=== PATIENT | female | born 1985 | race Hispanic/Latino ===

== ENCOUNTER 2017-03-18 16:01 | Emergency (ER) | payer SELFPAY ==
[2017-03-18] MEDS ORDERED: ZOFRAN IV ONE ×2 (20:55→23:55)
[2017-03-18] MEDS ORDERED: MORPHINE IV ONE (20:55)
[2017-03-18] MEDS ORDERED: NACL 0.9% 1000 ML 1,000 ML IV ONE (20:55)
[2017-03-18 22:01] LABS: Basophils % (Auto) 0.4 % (0.0-1.8); Eosinophils % (Auto) 1.3 % (0.0-4.3); Hematocrit 47.4 % (30.3-42.9); Mean Corpuscular HGB Conc 34 % (30-34); Mean Corpuscular Hemoglobin 32 pg (28-32); Mean Corpuscular Volume 93 fl (79-97); Platelet Count 255 K/mm3 (140-440); Red Cell Distribution Width 13.1 % (13.2-15.2); White Blood Count 14.4 K/mm3 (4.5-11.0)
[2017-03-18 22:20] LABS: Amylase 56 units/L (27-131); Lipase 24 units/L (13-60)
[2017-03-18 22:22] LABS: Alanine Aminotransferase 14 units/L (7-56); Albumin 5.1 g/dL (3.9-5); Albumin/Globulin Ratio 1.6 %; Alkaline Phosphatase 96 units/L (35-129); Anion Gap 22 mmol/L; Blood Urea Nitrogen 12 mg/dL (7-17); Calcium 9.6 mg/dL (8.4-10.2); Carbon Dioxide 20 mmol/L (22-30); Chloride 100.6 mmol/L (98-107); Creatine Kinase 78 units/L (30-135); Glucose 98 mg/dL (65-100); Potassium 3.9 mmol/L (3.6-5.0); Sodium 139 mmol/L (137-145); Total Protein 8.2 g/dL (6.3-8.2)
[2017-03-18 22:25] LABS: Bilirubin,Direct < 0.2 mg/dL (0-0.2); Bilirubin,Indirect 0.4 mg/dL
[2017-03-18 22:45] LABS: Bilirubin,Urine NEG (Negative); Blood,Urine NEG (Negative); Ketones,Urine 20 mg/dL (Negative); Leukocyte Esterase,Urine NEG (Negative); Mucus,Urine FEW /HPF; Nitrite,Urine NEG (Negative); Protein,Urine <15 mg/dL mg/dL (Negative); Urobilinogen,Urine < 2.0 mg/dL (<2.0)
--- NOTE | 2017-03-18 23:37 | Ultrasound Report ---
FINAL REPORT PROCEDURE: US ABDOMEN COMPLETE TECHNIQUE: Real-time sonography in multiple planes of the abdomen was performed with image documentation. CPT 41247 HISTORY: abd pain COMPARISON: No prior studies are available for comparison. FINDINGS: Liver: Normal size and echotexture with no evidence of cystic or solid mass lesions. Gallbladder: Well distended with the a 1.8 x 1.5 centimeter calculus. There is no evidence of any gallbladder wall thickening or pericholecystic collections.. Intrahepatic bile ducts: Normal caliber . Extrahepatic bile ducts: 2 millimeters in caliber. Pancreas: Normal as visualized with suboptimal depiction of the pancreatic tail. Aorta: Visualized portions appear normal. RIGHT kidney: Normal echotexture. No focal renal mass, calculus, or hydronephrosis. Length: 11 x 4 x 4cm. LEFT kidney: Normal echotexture. No focal renal mass, calculus, or hydronephrosis . Length: 11 x 5 x 5cm. Spleen: Normal size and echotexture. No focal lesions. Intraperitoneal fluid: None . Other: None . IMPRESSION: Cholelithiasis without any sonographic evidence of cholecystitis.
[2017-03-18] MEDS ORDERED: ZOFRAN ONE (23:49)
--- NOTE | 2017-03-18 23:49 | Cat Scan Report ---
FINAL REPORT PROCEDURE: CT ABDOMEN PELVIS W CON TECHNIQUE: Computerized axial tomography of the abdomen and pelvis was performed after the IV injection of iodinated nonionic contrast. HISTORY: abd pain COMPARISON: No prior studies are available for comparison. FINDINGS: A few small peripheral hazy densities are identified in the right lung lower lobe. Liver, spleen, and adrenal glands are within normal limits. Bilateral kidneys demonstrate uniform enhancement without hydronephrosis. Aorta is of normal caliber. There is no free fluid or free air. 1.5 centimeter calculus is noted in the gallbladder. Small bowel loops are within normal limits. Appendix is normal. Colonic diverticula are noted without evidence of diverticulitis. IMPRESSION: Cholelithiasis without CT evidence of cholecystitis. Ultrasound evaluation may be recommended. Otherwise no acute intra-abdominal or pelvic pathology. Small areas of hazy density in the right lung lower lobe may represent early areas of pneumonitis.
[2017-03-18] MEDS ORDERED: LIDOCAINE VISCOUS 2% PO ONE (23:50)
[2017-03-18] MEDS ORDERED: LIDOCAINE VISCOUS 2% ONE (23:51)
--- NOTE | 2017-03-19 01:34 | XRay Report ---
FINAL REPORT EXAM: XR CHEST ROUTINE 2V HISTORY: cough COMPARISON: None available. FINDINGS:: Frontal and lateral views of the chest obtained. Cardiac silhouette is within normal limits. No focal consolidation or effusion. No pneumothorax. Visualized bony thorax is grossly intact. IMPRESSION:: No acute findings.
--- NOTE | 2017-03-19 01:37 | Emergency Department Report ---
Entered by JUAN GUIDRY, acting as scribe for PAETL HAHN NP. ED Abdominal Pain HPI - General Chief Complaint: Sore Throat Stated Complaint: NAUSEA/FEVER/SORE THROAT Time Seen by Provider: 03/18/17 19:51 Source: patient Mode of arrival: Ambulatory Limitations: No Limitations - History of Present Illness Initial Comments: This is a 31 y/o female, nontoxic, well nourished in appearance, no acute signs of distress with a PMHx of asthma c/o nausea, vomiting and sore throat that began 3 days ago. Rates pain a 7/10 in severity, which she describes as aching in quality. Aggravated with swallowing and alleviated with nothing. Associated symptoms includes nausea and vomiting x 3 days, fever, and chills, but she denies ear pain, headache, dizziness, rhinorrhea, congestion, cough, chest pain , and SOB. Took Motrin and Tylenol with no relief. Patient's secondary complaint consists of a lump in right breast that began 10 months ago. Rates pain a 5/10 in severity, which she describes as aching in quality. Aggravated with palpation and alleviated with nothing. Patient states she was ordered to be seen in outpatient in this ED in April 2016 to have a mammagram of her breasts while she was incarcerated. Denies any changes. Patient requests the results of her mammogram test. PSHx of a benign left lumpectomy. Reports that she was recently seen by a physician in [place] ED and diagnosed with gallstones. Patient states she was told she needed surgery, but she has not followed up with surgery because pain has subsided. Denies any abdominal pain currently. Allergic to penicillin. Patient's is currently at the bedside. MD Complaint: abdominal pain -: Gradual, month(s) Location: diffuse, RUQ Radiation: none Migration to: no migration Severity: moderate Severity scale (0 -10): 8 Quality: aching Consistency: constant Improves With: nothing Worsens With: nothing Associated Symptoms: nausea, vomiting, chills. denies: diarrhea, fever, constipation, dysuria, hematemesis, hematochezia, melena, hematuria, anorexia, syncope - Related Data LMP Date: 01/22/17 Previous Rx's Medication Instructions Recorded Last Taken Type Azithromycin [Zithromax Z-JANAK] 250 mg PO DAILY #6 tablet 03/19/17 Unknown Rx traMADol [Ultram 50 MG tab] 50 mg PO Q6HR PRN #15 tablet 03/19/17 Unknown Rx Allergies Allergy/AdvReac Type Severity Reaction Status Date / Time Penicillins Allergy Unknown Verified 03/18/17 16:10 shellfish derived Allergy Swelling Verified 03/18/17 16:10 ED Review of Systems Constitutional: denies: chills, fever Eyes: denies: eye pain, eye discharge, vision change ENT: throat pain. denies: ear pain Respiratory: denies: cough, shortness of breath, wheezing Cardiovascular: denies: chest pain, palpitations Endocrine: no symptoms reported Gastrointestinal: abdominal pain, nausea, vomiting. denies: diarrhea, constipation, hematemesis, melena, hematochezia Genitourinary: denies: urgency, dysuria, discharge Musculoskeletal: denies: back pain, joint swelling, arthralgia Skin: denies: rash, lesions Neurological: denies: headache, weakness, paresthesias Psychiatric: denies: anxiety, depression Hematological/Lymphatic: denies: easy bleeding, easy bruising ED Past Medical Hx - Past Medical History Previous Medical History?: Yes Hx Asthma: Yes - Surgical History Additional Surgical History: left lumpectomy - benign - Social History Smoking Status: Current Every Day Smoker Substance Use Type: Alcohol - Medications Home Medications: Home Medications Medication Instructions Recorded Confirmed Last Taken Type Azithromycin [Zithromax Z-JANAK] 250 mg PO DAILY #6 tablet 03/19/17 Unknown Rx traMADol [Ultram 50 MG tab] 50 mg PO Q6HR PRN #15 tablet 03/19/17 Unknown Rx ED Physical Exam - General Limitations: No Limitations General appearance: alert, in no apparent distress - Head Head exam: Present: atraumatic, normocephalic - Eye Eye exam: Present: normal appearance, PERRL. Absent: scleral icterus, conjunctival injection, nystagmus, periorbital swelling, periorbital tenderness Pupils: Present: normal accommodation - ENT ENT exam: Present: mucous membranes moist, TM's normal bilaterally, normal external ear exam - Expanded ENT Exam Expanded Ear exam: Present: normal external inspection Mouth exam: Present: normal external inspection, tongue normal. Absent: drooling, trismus, muffled voice, tongue elevation, laceration Teeth exam: Present: normal inspection Throat exam: Positive: tonsillar erythema, tonsillomegaly (2+), tonsillar exudate. Negative: R peritonsillar mass, L peritonsillar mass - Neck Neck exam: Present: normal inspection, full ROM. Absent: tenderness, meningismus, lymphadenopathy, thyromegaly - Respiratory Respiratory exam: Present: normal lung sounds bilaterally. Absent: respiratory distress, wheezes, rales, rhonchi, stridor, chest wall tenderness, accessory muscle use, decreased breath sounds, prolonged expiratory - Cardiovascular Cardiovascular Exam: Present: regular rate, normal rhythm, tachycardia, normal heart sounds. Absent: bradycardia, irregular rhythm, systolic murmur, diastolic murmur, rubs, gallop - GI/Abdominal GI/Abdominal exam: Present: soft, tenderness, normal bowel sounds. Absent: distended, guarding, rebound, rigid, diminished bowel sounds, mass - Expanded GI/Abdominal Exam Expanded GI/Abdominal exam: Absent: psoas sign, obturator sign, heel tap sign, Whitehead's sign, Rovsing's sign, tenderness at Mcburney's Point, ascites - Rectal Rectal exam: Present: deferred - Extremities Exam Extremities exam: Present: normal inspection, full ROM, normal capillary refill. Absent: tenderness, pedal edema, joint swelling, calf tenderness - Back Exam Back exam: Present: normal inspection, full ROM. Absent: tenderness, CVA tenderness (R), CVA tenderness (L), muscle spasm, paraspinal tenderness, vertebral tenderness, rash noted - Neurological Exam Neurological exam: Present: alert, oriented X3, CN II-XII intact, normal gait, reflexes normal - Psychiatric Psychiatric exam: Present: normal affect, normal mood - Skin Skin exam: Present: warm, dry, intact, normal color. Absent: rash ED Course Vital Signs 03/18/17 16:10 Temperature 99 F Pulse Rate 115 H Respiratory 18 Rate Blood Pressure 129/97 O2 Sat by Pulse 99 Oximetry - Reevaluation(s) Reevaluation #1: 03/18/17 21:10 Patient is speaking in full sentences but no signs of distress and accompanied by . Reevaluation #2: 03/19/17 01:43 Patient is resting comfortably with no signs of distress. Reevaluation #3: 03/19/17 01:43 By mouth challenge; patient's daughter well with no signs of distress or nausea/ vomiting noted. Reevaluation #4: 03/19/17 01:51 Patient's is currently at bedside and states he will drive the patient home after discharge. ED Medical Decision Making - Lab Data Result diagrams: 03/18/17 21:37 03/18/17 21:37 - Medical Decision Making 31-year-old female that presents with tonsillitis exudate, nausea or vomiting. Patient was examined myself. Patient is stable. Patient received a CT scan of abdomen/pelvis, ultrasound of abdomen complete, and chest x-ray area ultrasound indicates cholelithiasis with no signs of cholecystitis. CT scan of abdomen is negative for any abnormalities but does indicate possible pneumonitis. Chest x- ray results negative findings of any abnormalities. Dr. Brown was consulted about patient exam, history, labs, and imaging findings and agrees to d/c plan of care. CBC obtained with elevated 14 of white count which is related to her tonsillitis with exudate. Patient was instructed and referred to follow up with a primary care doctor/general surgery for follow-up in 24 hours or if symptoms worsen and continue return to emergency room as soon as possible. Patient received azithromycin at the time of discharge. At time time of discharge, the patient does not seem toxic or ill in appearance. No acute signs of distress noted. Patient agrees to discharge treatment plan of care. No further questions noted by the patient. Patient was notified that she may need surgery for her gallbladder. ED Disposition Clinical Impression: Tonsillitis with exudate Cholelithiasis Qualifiers: Cholelithiasis location: other site Biliary obstruction: without biliary obstruction Qualified Code(s): K80.80 - Other cholelithiasis without obstruction Disposition: DC-01 TO HOME OR SELFCARE Is pt being admited?: No Does the pt Need Aspirin: No Condition: Stable Instructions: Azithromycin (By mouth), Tramadol (By mouth), Biliary Colic (ED) , Tonsillitis (ED) Additional Instructions: follow up with a primary care doctor/general surgery for possible gallbladder surgery in 24 hours or if symptoms worsen and continue return to emergency room as soon as possible. Do not operate any machinery after discharge due to the sedation/drowsiness of morphine Do not Operate any machinery while taking Ultram due to drowsiness. Prescriptions: Azithromycin [Zithromax Z-JANAK] 250 mg PO DAILY #6 tablet traMADol [Ultram 50 MG tab] 50 mg PO Q6HR PRN #15 tablet PRN Reason: Pain Referrals: [facility] [Outside] - 3-5 Days [facility] [Outside] - 3-5 Days PRIMARY CARE, [Primary Care Provider] - 24 Hours DAWNA BUSH MD [Staff Physician] - 24 Hours DELBERT VAZQUEZ MD [Staff Physician] - 24 Hours Forms: Work/School Release Form(ED) This documentation as recorded by the BREA sanchez JASMINE,accurately reflects the service I personally performed and the decisions made by ,PATEL HAHN, HERB GROWER.
[2017-03-19 02:31] VITALS: BP 156/73
== END 2017-03-19 03:00 | disposition home or self-care (01) ==
LOC: ED 16:01
DX: J03.90 Acute tonsillitis, unspecified (principal); K80.20 Calculus of gallbladder without cholecystitis without obstruction; J45.909 Unspecified asthma, uncomplicated; F17.210 Nicotine dependence, cigarettes, uncomplicated; Z88.0 Allergy status to penicillin; Z91.013 Allergy to seafood
CPT/HCPCS: 36415; 71020; 74177; 76700; 80048; 80074; 81001; 81025; 82140; 82150; 82550; 83690; 84702; 85025; 87040; 96361; 96374; 96375; 96376; 99284; J2270; J2405; J7030; Q9967

== ENCOUNTER 2020-12-24 18:47 | Inpatient (IN) | payer OTHER ==
[2020-12-24] MEDS ORDERED: diphenhydrAMINE 25 MG CAP PO PRN (19:24)
[2020-12-24] MEDS ORDERED: MAGNESIUM HYDROXIDE (MOM) ORAL LIQD UDC PO PRN (19:24)
[2020-12-24] MEDS ORDERED: ACETAMINOPHEN 325 MG TAB PO PRN (19:24)
[2020-12-24] MEDS ORDERED: ALUM-MAG HYDROXIDE-SIMETHICONE 200-200-20MG/5ML ORAL LIQD 30 ML PO PRN (19:24)
[2020-12-24] MEDS ORDERED: DOCUSATE SODIUM 100 MG CAP PO PRN (19:24)
[2020-12-24] MEDS ORDERED: ACETAMINOPHEN 500 MG TAB PO PRN (19:57)
[2020-12-24 20:23] LABS: Hematocrit 39.8 % (30.3-42.9); Mean Corpuscular HGB Conc 35 % (30-34); Mean Corpuscular Volume 94 fl (79-97); Platelet Count 170 K/mm3 (140-440); Red Blood Count 4.22 M/mm3 (3.65-5.03); Red Cell Distribution Width 12.5 % (13.2-15.2)
--- NOTE | 2020-12-24 20:39 | History and Physical Report ---
History of Present Illness Date of examination: 12/24/20 (Observation for elevated BP's and 24 hr urine) Date of admission: 12/24/20 19:19 Chief complaint: They sent me to the hospital because my blood pressure was high at the high risk doctor. History of present illness: [facility] were she had elevated blood pressures. It was recommended that she complete a 24 hr urine but was called to come to the hospital for observation d/t potential for patient to be non complaint with completing 24 hr urine. EDC Confirmation: 01/16/2021 Gestational Age: 36.5 weeks on admission Past History : 4 Term Births: 3 Premature Births: 0 Living Children: 3 Para: 3 Mult. Births: 0 Prev : 0 Aborta: 0 Elect. Ab: 0 Spont. Ab: 0 Ectopics: 0 # 1 Delivery date: 12/13/2002 Weeks Gestation: 41 labor: no Delivery type: Hours of labor: 12 Anesthesia type: epidural Delivery location: [place] Sex: Female weight: 6-? Name: Niki Comments: Induction for post-dates # 2 Delivery date: 01/25/2004 Weeks Gestation: 39 labor: no Delivery type: Hours of labor: 6 Anesthesia type: none Delivery location: [facility] Infant Sex: Male weight: 7-3 Name: Finn # 3 Delivery date: 12/15/2008 Weeks Gestation: 40 labor: no Delivery type: Hours of labor: 6 Anesthesia type: IV Delivery location: [place] Sex: Male weight: 7-0 Name: Ashok Past Medical History: Asthma Past Surgical History: Cyst removal Breast Surgery: (2003) left Family History Summary: Other Family Member - Has Family History of Ovarian Cancer - Entered On: 08/07/2020 Other Family Member - Has Family History of Hypertension - Entered On: 08/07/2020 Other Family Member - Has Family History of Diabetes - Entered On: 08/07/2020 Other Family Member - Has Family History of CVA or Stroke - Entered On: 08/07/2020 Other Family Member - Has Family History of Coronary Heart Disease - Entered On: 08/07/2020 Other Family Member - Has Family History Colon Cancer - Entered On: 08/07/2020 Other Family Member - Has Family History Breast Cancer - Entered On: 08/07/2020 Social History: Marital Status: Children: 3 Occupation: Sanitation Laborer at [employer] Smoking History: Patient has never smoked. 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 Infection History Hx of STD: gonorrhea HIV Risk Eval: no Personal hx. of genital herpes: no Genetic History Congenital Heart Defect: Mom: yes Dad: no Comments: 1st cousin Sabina Disease: Mom: no Dad: no Thalassemia Mom: no Dad: no Neural Tube Defect Mom: no Dad: no Down's Syndrome Mom: yes Dad: no Comments: cousins Keyur-Sachs Mom: no Dad: no Sickle Cell Disease/Trait Mom: no Dad: no Hemophilia Mom: no Dad: no Muscular Dystrophy Mom: no Dad: no Cystic Fibrosis Mom: no Dad: no Alice Chorea Mom: no Dad: no Mental Retardation Mom: no Dad: no Fragile X Mom: no Dad: no Other Genetic/Chromosomal Disorder Mom: no Dad: no Child w/other defect Mom: no Dad: no Enviromental Exposures Xray Exposure: yes Exposure to Cat Liter: no Current Allergies (reviewed today): * PCN (Critical) * AMOXICILLIN (Critical) * SHELLFISH (Critical) Past History Past Medical History: asthma Past Surgical History: breast surgery (Cyst removed) Family/Genetic History: none Social history: no significant social history - Obstetrical History Expected Date of Delivery: 01/16/21 Actual Gestation: 36 Week(s) 6 Day(s) : 4 Para: 3 Hx # Term Pregnancies: 3 Number of Pregnancies: 0 Spontaneous Abortions: 0 Induced : 0 Number of Living Children: 3 Medications and Allergies Allergies Allergy/AdvReac Type Severity Reaction Status Date / Time Penicillins Allergy Unknown Verified 03/18/17 16:10 shellfish derived Allergy Swelling Verified 03/18/17 16:10 Home Medications Medication Instructions Recorded Confirmed Last Taken Type Azithromycin [Zithromax Z-JANAK] 250 mg PO DAILY #6 tablet 03/19/17 Unknown Rx traMADoL [Ultram 50 MG tab] 50 mg PO Q6HR PRN #15 tablet 03/19/17 Unknown Rx Active Meds: Active Medications Acetaminophen (Acetaminophen 500 Mg Tab) 500 mg PO Q6H PRN PRN Reason: Pain,Mild(1-3)/FEVER>100.5/ORTIZ Al Hydrox/Mg Hydrox/Simethicone (Alum-Mag Hydroxide-Simethicone [phone]/5ml Oral Liqd 30 Ml) 30 ml PO Q6H PRN PRN Reason: Indigestion Diphenhydramine HCl (Diphenhydramine 25 Mg Cap) 25 mg PO Q6H PRN PRN Reason: Itching Docusate Sodium (Docusate Sodium 100 Mg Cap) 100 mg PO Q12H PRN PRN Reason: Constipation Magnesium Hydroxide (Magnesium Hydroxide (Mom) Oral Liqd Udc) 30 ml PO QHS PRN PRN Reason: Laxative Effect Multivitamins/Iron/Calcium ( Cuv11-Cg Fumarate-Folic Acid Vit Tab) 1 each PO QDAY ONEAL Ondansetron HCl (Ondansetron 4 Mg/2 Ml Inj) 4 mg IV Q6H PRN PRN Reason: Nausea And Vomiting Review of Systems All systems: negative - Vital Signs Vital signs: Vital Signs Pulse Pulse Ox 92 H 96 12/24/20 19:39 12/24/20 19:39 Temp Pulse Resp BP Pulse Ox 99.9 F H 89 18 147/92 96 12/24/20 19:43 12/24/20 20:35 12/24/20 19:43 12/24/20 19:43 12/24/20 20:35 Pt denies vaginal bleeding, LOF, and she is not feeling any ctxs. Ctxs noted on monitor. Also denies ORTIZ, blurred vision, spots before her eyes, chest pain, shortness of breath, and upper abdominal pain. Will redraw BMP d/t sample being hemolyzed. - Physical Exam Breasts: Positive: deferred Cardiovascular: Normal S1, Normal S2 Lungs: Positive: Clear to auscultation Abdomen: Positive: normal appearance, soft Uterus: Positive: normal size (For 36 weeks gestation. ), normal contour Extremities: Positive: normal Deep Tendon Reflex Grade: Normal +2 - Obstetrical FHR: category 1 Uterine Contraction Monitor Mode: External Uterine Contraction Pattern: Irregular Uterine Tone Measurement Phase: Resting Uterine Contraction Intensity: Mild Results Result Diagrams: 12/24/20 20:00 12/25/20 00:14 Abnormal lab results 12/24/20 Range/Units 20:00 WBC 12.2 H (4.5-11.0) K/mm3 MCH 33 H (28-32) pg MCHC 35 H (30-34) % RDW 12.5 L (13.2-15.2) % GBS UNKNOWN All other labs normal. HBsAg Screen Negative Negative *1 RPR Non Reactive Non Reactive *2 Rubella Antibodies, IgG 6.22 index Immune >0.99 *3 Non-immune <0.90 Equivocal 0.90 - 0.99 Immune >0.99 ABO Grouping O *4 Rh Factor Negative *5 Tests: (3) HB Solu + Rflx Frac (529300) Hemoglobin (Hgb) Solubility Negative Negative *55 Tests: (4) HIV Ag/Ab with Reflex ([id number]) HIV Screen 4th Generation wRfx Non Reactive Non Reactive *56 Tests: (5) HCV Antibody reflex to ATILIO ([id number]) ! HCV Ab <0.1 s/co ratio 0.0-0.9 *57 Tests: (6) Interpretation: ([id number]) ! Interpretation: SPRCS *58 Negative Assessment and Plan A: 35 y.o. @ 36.5 wks. Observation to collect a 24 hr urine d/t elevated blood pressures @ [facility] appointment. - Patient Problems (1) Elevated blood pressure complicating in third trimester, antepartum Onset Date: ~12/24/20 Current Visit: Yes Status: Acute Plan to address problem: Admit to labor and to labor and delivery. Initiate IV: INT. Draw pre eclampsia labs. Monitor blood pressures. Monitor for s/sx of pre eclampsia. (2) with 36 completed weeks gestation Current Visit: Yes Status: Acute Plan to address problem: Monitor status through EFM.
[2020-12-24 21:04] LABS: Alanine Aminotransferase 18 units/L (7-56); Albumin 3.9 g/dL (3.9-5); Blood Urea Nitrogen 10 mg/dL (7-17); Hemolysis Index 450; Uric Acid 6.1 mg/dL (3.5-7.6)
[2020-12-24 21:07] LABS: BUN/Creatinine Ratio 20; Bilirubin,Direct < 0.2 mg/dL (0-0.2)
[2020-12-25 00:47] LABS: Blood Urea Nitrogen 10 mg/dL (7-17); Calcium 8.6 mg/dL (8.4-10.2); Hemolysis Index 9
[2020-12-25 01:00] LABS: BUN/Creatinine Ratio 25
[2020-12-25] MEDS: ONDANSETRON 4 MG/2 ML INJ IV PRN ×3 (01:20→20:51)
[2020-12-25] MEDS ORDERED: POTASSIUM CHLORIDE ER 20 MEQ TAB PO ONE (02:08)
[2020-12-25 02:31] LABS: Uric Acid 5.6 mg/dL (3.5-7.6)
[2020-12-25 04:43] LABS: Bacteria,Urine 2+ /HPF (Negative); Bilirubin,Urine NEG (Negative); Blood,Urine NEG (Negative); Calcium Oxalate Crystals,Urine 2+; Color,Urine Yellow (Yellow); Mucus,Urine 2+ /HPF
[2020-12-25 06:08] LABS: Amphetamine Screen,Urine Negative; Benzodiazepines Screen,Urine Negative; Cocaine Screen,Urine Negative; Methadone Screen,Urine Negative; Opiate Screen,Urine Negative
[2020-12-25 06:34] LABS: Cannabinoid Screen,Urine Positive
--- NOTE | 2020-12-25 07:49 | Progress Note ---
Assessment and Plan Patient resting w/o complaints. denies ORTIZ, visual changes or epigastric pain. plan of care reviewed, all questions addressed. - Patient Problems (1) Elevated blood pressure complicating in third trimester, antepartum Onset Date: ~12/24/20 Current Visit: Yes Status: Acute Plan to address problem: 24hr urine in progress, done ~ 1900 tonight Continue to monitor b/ps (2) Hypokalemia Current Visit: Yes Status: Acute Plan to address problem: potassium replacement, recheck K+ later today (3) IUGR (intrauterine growth restriction) Current Visit: Yes Status: Acute Plan to address problem: cont efm/toco (4) Insufficient care in third trimester Current Visit: Yes Status: Acute (5) complicated by umbilical vein abnormality Current Visit: Yes Status: Acute Qualifiers: Fetus number: single or unspecified fetus Qualified Code(s): O35.8XX0 - Maternal care for other (suspected) abnormality and damage, not applicable or unspecified (6) with 36 completed weeks gestation Current Visit: Yes Status: Acute Subjective - Subjective Date of service: 12/25/20 Principal diagnosis: IUP @ 36+6; elevated b/p, 24hr urine for TP in progress Patient reports: movement normal, no new complaints, no loss of fluid, no vaginal bleeding, no contractions Objective - Vital Signs Vital Signs: Vital Signs - 12hr 12/24/20 12/24/20 12/24/20 19:49 19:52 19:54 Temperature Pulse Rate 93 H 88 79 Blood Pressure O2 Sat by Pulse 96 94 95 Oximetry 12/24/20 12/24/20 12/24/20 19:59 20:01 20:04 Temperature Pulse Rate 82 89 80 Blood Pressure O2 Sat by Pulse 96 94 97 Oximetry 12/24/20 12/24/20 12/24/20 20:09 20:15 20:20 Temperature Pulse Rate 101 H 114 H 75 Blood Pressure O2 Sat by Pulse 95 96 95 Oximetry 12/24/20 12/24/20 12/24/20 20:25 20:30 20:35 Temperature Pulse Rate 92 H 82 89 Blood Pressure O2 Sat by Pulse 96 96 96 Oximetry 12/24/20 12/24/20 12/24/20 20:38 20:40 20:45 Temperature Pulse Rate 78 78 87 Blood Pressure 122/64 O2 Sat by Pulse 95 96 Oximetry 12/24/20 12/24/20 12/24/20 20:50 20:55 21:00 Temperature Pulse Rate 70 73 68 Blood Pressure O2 Sat by Pulse 97 96 96 Oximetry 12/24/20 12/24/20 12/24/20 21:05 21:08 21:10 Temperature Pulse Rate 78 76 80 Blood Pressure 120/72 O2 Sat by Pulse 96 96 Oximetry 12/24/20 12/24/20 12/24/20 21:15 21:20 21:29 Temperature Pulse Rate 79 78 74 Blood Pressure O2 Sat by Pulse 96 97 98 Oximetry 12/24/20 12/24/20 12/24/20 21:34 21:38 21:39 Temperature Pulse Rate 81 82 81 Blood Pressure 120/73 O2 Sat by Pulse 97 97 Oximetry 12/24/20 12/24/20 12/24/20 21:44 21:49 21:54 Temperature Pulse Rate 82 76 84 Blood Pressure O2 Sat by Pulse 96 96 95 Oximetry 12/24/20 12/24/20 12/24/20 21:58 21:59 22:03 Temperature Pulse Rate 84 89 80 Blood Pressure O2 Sat by Pulse 94 95 94 Oximetry 12/24/20 12/24/20 12/24/20 22:04 22:08 22:09 Temperature Pulse Rate 84 70 72 Blood Pressure 115/61 O2 Sat by Pulse 96 96 Oximetry 12/24/20 12/24/20 12/24/20 22:13 22:14 22:19 Temperature Pulse Rate 85 85 90 Blood Pressure O2 Sat by Pulse 94 95 94 Oximetry 12/24/20 12/24/20 12/24/20 22:22 22:24 22:27 Temperature Pulse Rate 69 85 81 Blood Pressure O2 Sat by Pulse 94 94 94 Oximetry 12/24/20 12/24/20 12/24/20 22:29 22:34 22:39 Temperature Pulse Rate 86 69 75 Blood Pressure 119/65 O2 Sat by Pulse 94 94 94 Oximetry 12/24/20 12/24/20 12/24/20 22:42 22:44 22:49 Temperature Pulse Rate 79 77 76 Blood Pressure O2 Sat by Pulse 94 94 94 Oximetry 12/24/20 12/24/20 12/24/20 22:54 22:55 22:59 Temperature Pulse Rate 66 72 86 Blood Pressure O2 Sat by Pulse 94 94 94 Oximetry 12/24/20 12/24/20 12/24/20 23:04 23:06 23:08 Temperature Pulse Rate 88 66 64 Blood Pressure 123/62 O2 Sat by Pulse 95 94 Oximetry 12/24/20 12/24/20 12/24/20 23:09 23:14 23:16 Temperature Pulse Rate 83 79 77 Blood Pressure O2 Sat by Pulse 95 94 94 Oximetry 12/24/20 12/24/20 12/24/20 23:19 23:24 23:29 Temperature Pulse Rate 79 73 65 Blood Pressure O2 Sat by Pulse 94 93 95 Oximetry 12/24/20 12/24/20 12/24/20 23:34 23:39 23:44 Temperature Pulse Rate 74 67 66 Blood Pressure 120/59 O2 Sat by Pulse 96 95 95 Oximetry 12/24/20 12/24/20 12/24/20 23:49 23:54 23:59 Temperature Pulse Rate 79 71 69 Blood Pressure O2 Sat by Pulse 95 95 95 Oximetry 12/25/20 12/25/20 12/25/20 00:00 00:04 00:09 Temperature Pulse Rate 67 68 72 Blood Pressure 116/64 O2 Sat by Pulse 94 95 95 Oximetry 12/25/20 12/25/20 12/25/20 00:14 00:22 00:27 Temperature Pulse Rate 70 87 77 Blood Pressure O2 Sat by Pulse 96 98 98 Oximetry 12/25/20 12/25/20 12/25/20 00:32 00:37 00:38 Temperature Pulse Rate 81 79 75 Blood Pressure 121/68 O2 Sat by Pulse 96 97 Oximetry 12/25/20 12/25/20 12/25/20 00:42 00:47 00:52 Temperature Pulse Rate 68 67 69 Blood Pressure O2 Sat by Pulse 97 98 96 Oximetry 12/25/20 12/25/20 12/25/20 00:57 01:02 01:07 Temperature Pulse Rate 65 68 75 Blood Pressure O2 Sat by Pulse 98 97 96 Oximetry 12/25/20 12/25/20 12/25/20 01:08 01:12 01:17 Temperature 98.7 F Pulse Rate 76 73 74 Blood Pressure 120/72 O2 Sat by Pulse 96 97 Oximetry 12/25/20 12/25/20 12/25/20 01:22 01:27 01:32 Temperature Pulse Rate 70 69 72 Blood Pressure O2 Sat by Pulse 98 97 97 Oximetry 12/25/20 12/25/20 12/25/20 01:37 01:38 01:42 Temperature Pulse Rate 66 71 69 Blood Pressure 122/72 O2 Sat by Pulse 97 96 Oximetry 12/25/20 12/25/20 12/25/20 01:47 01:52 01:57 Temperature Pulse Rate 72 70 72 Blood Pressure O2 Sat by Pulse 96 97 96 Oximetry 12/25/20 12/25/20 12/25/20 02:02 02:07 02:09 Temperature Pulse Rate 66 73 69 Blood Pressure 126/70 O2 Sat by Pulse 96 96 Oximetry 12/25/20 12/25/20 12/25/20 02:12 02:17 02:22 Temperature Pulse Rate 74 64 80 Blood Pressure O2 Sat by Pulse 97 98 97 Oximetry 12/25/20 12/25/20 12/25/20 02:27 02:32 02:37 Temperature Pulse Rate 74 70 68 Blood Pressure O2 Sat by Pulse 95 95 95 Oximetry 12/25/20 12/25/20 12/25/20 02:38 02:42 02:47 Temperature Pulse Rate 68 68 70 Blood Pressure 128/66 O2 Sat by Pulse 95 95 Oximetry 12/25/20 12/25/20 12/25/20 02:52 02:57 03:02 Temperature Pulse Rate 65 68 66 Blood Pressure O2 Sat by Pulse 96 95 96 Oximetry 12/25/20 12/25/20 12/25/20 03:07 03:10 03:12 Temperature Pulse Rate 70 62 64 Blood Pressure 128/66 O2 Sat by Pulse 95 95 Oximetry 12/25/20 12/25/20 12/25/20 03:17 03:32 03:37 Temperature Pulse Rate 65 73 78 Blood Pressure O2 Sat by Pulse 96 99 97 Oximetry 12/25/20 12/25/20 12/25/20 03:38 03:42 03:47 Temperature Pulse Rate 75 75 70 Blood Pressure 112/61 O2 Sat by Pulse 95 95 Oximetry 12/25/20 12/25/20 12/25/20 03:52 03:57 04:02 Temperature Pulse Rate 71 71 70 Blood Pressure O2 Sat by Pulse 96 95 95 Oximetry 12/25/20 12/25/20 12/25/20 04:07 04:10 04:12 Temperature Pulse Rate 71 82 66 Blood Pressure 119/78 O2 Sat by Pulse 96 96 Oximetry 12/25/20 12/25/20 12/25/20 04:17 04:22 04:27 Temperature Pulse Rate 79 78 77 Blood Pressure O2 Sat by Pulse 96 96 97 Oximetry 12/25/20 12/25/20 12/25/20 04:32 04:37 04:39 Temperature Pulse Rate 71 77 67 Blood Pressure 125/75 O2 Sat by Pulse 96 97 Oximetry 12/25/20 12/25/20 12/25/20 04:42 04:47 04:52 Temperature Pulse Rate 79 77 74 Blood Pressure O2 Sat by Pulse 97 97 96 Oximetry 12/25/20 12/25/20 12/25/20 04:57 05:02 05:05 Temperature Pulse Rate 72 73 74 Blood Pressure O2 Sat by Pulse 94 95 94 Oximetry 12/25/20 12/25/20 12/25/20 05:07 05:08 05:12 Temperature Pulse Rate 76 73 73 Blood Pressure 113/71 O2 Sat by Pulse 94 94 Oximetry 12/25/20 12/25/20 12/25/20 05:17 05:22 05:27 Temperature Pulse Rate 75 75 75 Blood Pressure O2 Sat by Pulse 93 93 92 Oximetry 12/25/20 12/25/20 12/25/20 05:28 05:31 05:32 Temperature Pulse Rate 69 59 L 91 H Blood Pressure 120/76 O2 Sat by Pulse 94 97 Oximetry 12/25/20 12/25/20 12/25/20 05:37 05:38 05:42 Temperature Pulse Rate 82 84 78 Blood Pressure 116/75 O2 Sat by Pulse 94 93 Oximetry 12/25/20 12/25/20 12/25/20 05:47 05:52 05:54 Temperature Pulse Rate 78 74 72 Blood Pressure O2 Sat by Pulse 93 93 94 Oximetry 12/25/20 12/25/20 12/25/20 05:57 06:02 06:07 Temperature Pulse Rate 78 73 73 Blood Pressure O2 Sat by Pulse 93 94 93 Oximetry 12/25/20 12/25/20 12/25/20 06:09 06:12 06:16 Temperature Pulse Rate 74 71 75 Blood Pressure 119/67 O2 Sat by Pulse 97 94 Oximetry 12/25/20 12/25/20 12/25/20 06:17 06:22 06:27 Temperature Pulse Rate 76 72 80 Blood Pressure O2 Sat by Pulse 95 94 94 Oximetry 12/25/20 12/25/20 12/25/20 06:29 06:34 06:38 Temperature Pulse Rate 77 65 76 Blood Pressure 132/83 O2 Sat by Pulse 94 98 Oximetry 12/25/20 12/25/20 12/25/20 06:39 06:44 06:49 Temperature Pulse Rate 72 77 76 Blood Pressure O2 Sat by Pulse 98 97 98 Oximetry 12/25/20 12/25/20 12/25/20 06:54 06:59 07:04 Temperature Pulse Rate 81 73 76 Blood Pressure O2 Sat by Pulse 96 96 99 Oximetry 12/25/20 12/25/20 12/25/20 07:08 07:09 07:14 Temperature Pulse Rate 69 70 87 Blood Pressure 125/75 O2 Sat by Pulse 97 96 Oximetry 12/25/20 12/25/20 12/25/20 07:19 07:24 07:29 Temperature Pulse Rate 77 76 70 Blood Pressure O2 Sat by Pulse 97 95 96 Oximetry 12/25/20 12/25/20 12/25/20 07:34 07:38 07:39 Temperature Pulse Rate 69 60 74 Blood Pressure 133/77 137/79 O2 Sat by Pulse 98 99 Oximetry - Exam Cardiovascular: Regular rate Lungs: Clear to auscultation, Normal air movement Abdomen: Present: normal appearance, soft Uterus: Present: normal, fundal height above umbilicus FHR: auscultation normal Uterine Contraction Monitor Mode: External Uterine Contraction Pattern: Absent Uterine Tone Measurement Phase: Resting Extremities: normal Deep Tendon Reflex Grade: Normal +2 - Labs Labs: Abnormal Labs 12/24/20 12/24/20 12/25/20 20:00 20:00 00:14 WBC 12.2 H MCH 33 H MCHC 35 H RDW 12.5 L Sodium 136 L 136 L Potassium 5.9 H 3.3 L D Carbon Dioxide 20 L 21 L Creatinine 0.5 L 0.4 L AST 60 H Urine WBC (Auto) 12/25/20 04:27 WBC MCH MCHC RDW Sodium Potassium Carbon Dioxide Creatinine AST Urine WBC (Auto) 9.0 H Laboratory Results - last 24 hr 12/24/20 12/24/20 12/24/20 20:00 20:00 21:31 WBC 12.2 H RBC 4.22 Hgb 14.0 Hct 39.8 MCV 94 MCH 33 H MCHC 35 H RDW 12.5 L Plt Count 170 Sodium 136 L Potassium 5.9 H Chloride 101.4 Carbon Dioxide 20 L Anion Gap 21 BUN 10 Creatinine 0.5 L Estimated GFR > 60 BUN/Creatinine Ratio 20 Glucose 85 Uric Acid 6.1 Calcium 9.0 Total Bilirubin 0.20 Direct Bilirubin < 0.2 Indirect Bilirubin 0.0 AST 60 H ALT 18 Alkaline Phosphatase 113 Lactate Dehydrogenase Total Protein 6.8 Albumin 3.9 Albumin/Globulin Ratio 1.3 Urine Color Urine Turbidity Urine pH Ur Specific [place] Urine Protein Urine Glucose (UA) Urine Ketones Urine Blood Urine Nitrite Urine Bilirubin Urine Urobilinogen Ur Leukocyte Esterase Urine WBC (Auto) Urine RBC (Auto) U Epithel Cells (Auto) Urine Bacteria (Auto) Calcium Oxalate Crystal Urine Mucus Urine Opiates Screen Urine Methadone Screen Ur Barbiturates Screen Ur Phencyclidine Scrn Ur Amphetamines Screen U Benzodiazepines Scrn Urine Cocaine Screen U Marijuana (THC) Screen Drugs of Abuse Note Blood Type O NEGATIVE Antibody Screen Positive Antibody Identification Anti-D (Passively Aquired) 12/25/20 12/25/20 12/25/20 00:14 00:14 04:27 WBC RBC Hgb Hct MCV MCH MCHC RDW Plt Count Sodium 136 L Potassium 3.3 L D Chloride 101.3 Carbon Dioxide 21 L Anion Gap 17 BUN 10 Creatinine 0.4 L Estimated GFR > 60 BUN/Creatinine Ratio 25 Glucose 98 Uric Acid 5.6 Calcium 8.6 Total Bilirubin Direct Bilirubin Indirect Bilirubin AST 18 ALT 12 Alkaline Phosphatase Lactate Dehydrogenase 159 Total Protein Albumin Albumin/Globulin Ratio Urine Color Yellow Urine Turbidity Slightly-cloudy Urine pH 5.0 Ur Specific [place] 1.028 Urine Protein 30 mg/dl Urine Glucose (UA) Neg Urine Ketones Neg Urine Blood Neg Urine Nitrite Neg Urine Bilirubin Neg Urine Urobilinogen 2.0 Ur Leukocyte Esterase Tr Urine WBC (Auto) 9.0 H Urine RBC (Auto) 4.0 U Epithel Cells (Auto) 8.0 Urine Bacteria (Auto) 2+ Calcium Oxalate Crystal 2+ Urine Mucus 2+ Urine Opiates Screen Urine Methadone Screen Ur Barbiturates Screen Ur Phencyclidine Scrn Ur Amphetamines Screen U Benzodiazepines Scrn Urine Cocaine Screen U Marijuana (THC) Screen Drugs of Abuse Note Blood Type Antibody Screen Antibody Identification 06/08/21 04:27 WBC RBC Hgb Hct MCV MCH MCHC RDW Plt Count Sodium Potassium Chloride Carbon Dioxide Anion Gap BUN Creatinine Estimated GFR BUN/Creatinine Ratio Glucose Uric Acid Calcium Total Bilirubin Direct Bilirubin Indirect Bilirubin AST ALT Alkaline Phosphatase Lactate Dehydrogenase Total Protein Albumin Albumin/Globulin Ratio Urine Color Urine Turbidity Urine pH Ur Specific [place] Urine Protein Urine Glucose (UA) Urine Ketones Urine Blood Urine Nitrite Urine Bilirubin Urine Urobilinogen Ur Leukocyte Esterase Urine WBC (Auto) Urine RBC (Auto) U Epithel Cells (Auto) Urine Bacteria (Auto) Calcium Oxalate Crystal Urine Mucus Urine Opiates Screen Negative Urine Methadone Screen Negative Ur Barbiturates Screen Negative Ur Phencyclidine Scrn Negative Ur Amphetamines Screen Negative U Benzodiazepines Scrn Negative Urine Cocaine Screen Negative U Marijuana (THC) Screen Positive Drugs of Abuse Note Disclamer Blood Type Antibody Screen Antibody Identification
[2020-12-25] MEDS ORDERED: PRENATAL VIT27-FE FUMARATE-FOLIC ACID VIT TAB PO SCH (10:00)
[2020-12-25] MEDS: buprenorphine 2 MG TAB SUBL SL SCH ×2 (10:41→22:23)
[2020-12-25 15:37] LABS: Blood Urea Nitrogen 8 mg/dL (7-17); Calcium 8.7 mg/dL (8.4-10.2); Hemolysis Index 6
[2020-12-25 15:43] LABS: BUN/Creatinine Ratio 20
[2020-12-25 21:52] LABS: Creatinine,Urine 80.3 mg/dL (0.1-20.0)
--- NOTE | 2020-12-26 06:13 | Progress Note ---
Assessment and Plan Called lab for results of 24hr urine They are running it this AM due to the order being cancelled. BP 130-120/80-70 FHR Cat 1 IUP@37w with elevated BP, IUGR, elevated doppler P: continue POC IOL date?? Dr Rogers consulted Subjective - Subjective Date of service: 12/26/20 (pt OOB to toilet) Principal diagnosis: IUP @ 37 0/7; elevated b/p, IUGR; abnl doppler Patient reports: movement normal, no new complaints, no loss of fluid, no vaginal bleeding, no contractions Objective - Vital Signs Vital Signs: Vital Signs - 12hr 12/25/20 12/25/20 12/25/20 18:25 18:30 18:35 Temperature Pulse Rate 64 71 64 Respiratory Rate Blood Pressure Blood Pressure [Left] O2 Sat by Pulse 98 98 97 Oximetry 12/25/20 12/25/20 12/25/20 18:40 18:45 18:48 Temperature Pulse Rate 71 68 67 Respiratory Rate Blood Pressure 132/76 Blood Pressure [Left] O2 Sat by Pulse 98 97 Oximetry 12/25/20 12/25/20 12/25/20 18:50 18:55 19:00 Temperature Pulse Rate 68 69 78 Respiratory Rate Blood Pressure Blood Pressure [Left] O2 Sat by Pulse 96 95 97 Oximetry 12/25/20 12/25/20 12/25/20 19:05 19:10 19:15 Temperature Pulse Rate 65 65 61 Respiratory Rate Blood Pressure Blood Pressure [Left] O2 Sat by Pulse 96 96 97 Oximetry 12/25/20 12/25/20 12/25/20 19:20 19:29 19:34 Temperature Pulse Rate 68 67 67 Respiratory Rate Blood Pressure Blood Pressure [Left] O2 Sat by Pulse 97 98 97 Oximetry 12/25/20 12/25/20 12/25/20 19:39 19:49 19:54 Temperature Pulse Rate 71 59 L 80 Respiratory Rate Blood Pressure Blood Pressure [Left] O2 Sat by Pulse 97 99 98 Oximetry 12/25/20 12/25/20 12/25/20 19:59 20:04 20:07 Temperature Pulse Rate 66 75 58 L Respiratory Rate Blood Pressure 142/82 Blood Pressure [Left] O2 Sat by Pulse 98 97 Oximetry 12/25/20 12/25/20 12/25/20 20:08 20:09 20:14 Temperature 98.7 F Pulse Rate 67 70 63 Respiratory 18 Rate Blood Pressure Blood Pressure 142/82 [Left] O2 Sat by Pulse 97 98 96 Oximetry 12/25/20 12/25/20 12/25/20 20:19 20:24 20:29 Temperature Pulse Rate 84 70 79 Respiratory Rate Blood Pressure Blood Pressure [Left] O2 Sat by Pulse 98 97 97 Oximetry 12/25/20 12/25/20 12/25/20 20:34 20:48 20:53 Temperature Pulse Rate 70 72 65 Respiratory Rate Blood Pressure Blood Pressure [Left] O2 Sat by Pulse 98 98 97 Oximetry 12/25/20 12/25/20 12/25/20 20:58 21:03 21:08 Temperature Pulse Rate 59 L 61 56 L Respiratory Rate Blood Pressure Blood Pressure [Left] O2 Sat by Pulse 97 98 96 Oximetry 12/25/20 12/25/20 12/25/20 21:13 21:18 21:23 Temperature Pulse Rate 60 63 69 Respiratory Rate Blood Pressure Blood Pressure [Left] O2 Sat by Pulse 95 97 98 Oximetry 12/25/20 12/25/20 12/25/20 21:28 21:33 21:38 Temperature Pulse Rate 61 62 66 Respiratory Rate Blood Pressure Blood Pressure [Left] O2 Sat by Pulse 97 97 96 Oximetry 12/25/20 12/25/20 12/25/20 21:43 21:47 21:48 Temperature Pulse Rate 66 64 64 Respiratory Rate Blood Pressure 122/82 Blood Pressure [Left] O2 Sat by Pulse 97 97 Oximetry 12/25/20 12/25/20 12/25/20 21:53 21:58 22:16 Temperature Pulse Rate 64 59 L 77 Respiratory Rate Blood Pressure Blood Pressure [Left] O2 Sat by Pulse 97 97 97 Oximetry 12/25/20 12/25/20 12/25/20 22:21 22:25 22:26 Temperature 98.5 F Pulse Rate 60 66 76 Respiratory 18 Rate Blood Pressure Blood Pressure 122/82 [Left] O2 Sat by Pulse 96 96 96 Oximetry 12/25/20 12/25/20 12/25/20 22:31 22:36 22:41 Temperature Pulse Rate 64 68 67 Respiratory Rate Blood Pressure 129/80 Blood Pressure [Left] O2 Sat by Pulse 97 96 97 Oximetry 06/08/21 06/08/21 06/08/21 22:46 22:47 22:52 Temperature Pulse Rate 71 69 68 Respiratory Rate Blood Pressure 123/79 Blood Pressure [Left] O2 Sat by Pulse 96 98 Oximetry 12/25/20 12/25/20 12/25/20 22:57 23:02 23:07 Temperature Pulse Rate 60 66 63 Respiratory Rate Blood Pressure Blood Pressure [Left] O2 Sat by Pulse 97 96 95 Oximetry 12/25/20 12/25/20 12/25/20 23:12 23:17 23:18 Temperature Pulse Rate 63 62 64 Respiratory Rate Blood Pressure Blood Pressure [Left] O2 Sat by Pulse 94 94 94 Oximetry 12/25/20 12/25/20 12/25/20 23:22 23:27 23:32 Temperature Pulse Rate 63 64 80 Respiratory Rate Blood Pressure Blood Pressure [Left] O2 Sat by Pulse 93 94 92 Oximetry 12/25/20 12/25/20 12/25/20 23:37 23:42 23:45 Temperature Pulse Rate 66 72 61 Respiratory Rate Blood Pressure Blood Pressure [Left] O2 Sat by Pulse 94 93 94 Oximetry 12/25/20 12/25/20 12/25/20 23:47 23:49 23:52 Temperature Pulse Rate 68 62 76 Respiratory Rate Blood Pressure 124/60 Blood Pressure [Left] O2 Sat by Pulse 93 92 Oximetry 12/25/20 12/26/20 12/26/20 23:57 00:02 00:07 Temperature Pulse Rate 70 74 67 Respiratory Rate Blood Pressure Blood Pressure [Left] O2 Sat by Pulse 91 92 93 Oximetry 12/26/20 12/26/20 12/26/20 00:12 00:17 00:21 Temperature Pulse Rate 79 76 72 Respiratory Rate Blood Pressure 116/74 Blood Pressure [Left] O2 Sat by Pulse 93 93 Oximetry 12/26/20 12/26/20 12/26/20 00:22 00:27 00:31 Temperature Pulse Rate 67 75 68 Respiratory Rate Blood Pressure Blood Pressure [Left] O2 Sat by Pulse 92 93 94 Oximetry 12/26/20 12/26/20 12/26/20 00:32 00:36 00:37 Temperature Pulse Rate 70 81 65 Respiratory Rate Blood Pressure Blood Pressure [Left] O2 Sat by Pulse 94 93 94 Oximetry 12/26/20 12/26/20 12/26/20 00:42 00:47 00:48 Temperature Pulse Rate 61 63 66 Respiratory Rate Blood Pressure 131/69 Blood Pressure [Left] O2 Sat by Pulse 98 98 Oximetry 12/26/20 12/26/20 12/26/20 00:52 00:57 01:02 Temperature Pulse Rate 67 63 61 Respiratory Rate Blood Pressure Blood Pressure [Left] O2 Sat by Pulse 96 97 98 Oximetry 12/26/20 12/26/20 12/26/20 01:07 01:12 01:17 Temperature Pulse Rate 65 61 65 Respiratory Rate Blood Pressure Blood Pressure [Left] O2 Sat by Pulse 96 96 95 Oximetry 12/26/20 12/26/20 12/26/20 01:19 01:22 01:27 Temperature Pulse Rate 65 62 66 Respiratory Rate Blood Pressure Blood Pressure [Left] O2 Sat by Pulse 94 96 94 Oximetry 12/26/20 12/26/20 12/26/20 01:38 01:43 01:47 Temperature Pulse Rate 68 66 72 Respiratory Rate Blood Pressure 124/70 Blood Pressure [Left] O2 Sat by Pulse 97 96 Oximetry 12/26/20 12/26/20 12/26/20 01:48 01:52 01:53 Temperature Pulse Rate 65 65 64 Respiratory Rate Blood Pressure Blood Pressure [Left] O2 Sat by Pulse 95 94 94 Oximetry 12/26/20 12/26/20 12/26/20 01:58 02:03 02:05 Temperature Pulse Rate 64 68 67 Respiratory Rate Blood Pressure Blood Pressure [Left] O2 Sat by Pulse 95 94 94 Oximetry 12/26/20 12/26/20 12/26/20 02:08 02:13 02:18 Temperature Pulse Rate 67 73 65 Respiratory Rate Blood Pressure Blood Pressure [Left] O2 Sat by Pulse 94 94 94 Oximetry 12/26/20 12/26/20 12/26/20 02:22 02:23 02:28 Temperature Pulse Rate 67 69 75 Respiratory Rate Blood Pressure Blood Pressure [Left] O2 Sat by Pulse 94 94 94 Oximetry 12/26/20 12/26/20 12/26/20 02:33 02:36 02:38 Temperature Pulse Rate 65 72 67 Respiratory Rate Blood Pressure Blood Pressure [Left] O2 Sat by Pulse 94 94 94 Oximetry 12/26/20 12/26/20 12/26/20 02:42 02:43 02:48 Temperature Pulse Rate 69 64 79 Respiratory Rate Blood Pressure 130/68 Blood Pressure [Left] O2 Sat by Pulse 94 94 94 Oximetry 12/26/20 12/26/20 12/26/20 02:53 02:55 02:58 Temperature Pulse Rate 68 69 65 Respiratory Rate Blood Pressure Blood Pressure [Left] O2 Sat by Pulse 94 94 95 Oximetry 12/26/20 12/26/20 12/26/20 03:03 03:05 03:08 Temperature Pulse Rate 71 77 68 Respiratory Rate Blood Pressure Blood Pressure [Left] O2 Sat by Pulse 95 94 95 Oximetry 12/26/20 12/26/20 12/26/20 03:13 03:18 03:23 Temperature Pulse Rate 88 78 85 Respiratory Rate Blood Pressure Blood Pressure [Left] O2 Sat by Pulse 97 96 96 Oximetry 12/26/20 12/26/20 12/26/20 03:28 03:33 03:38 Temperature Pulse Rate 77 83 67 Respiratory Rate Blood Pressure Blood Pressure [Left] O2 Sat by Pulse 96 96 95 Oximetry 12/26/20 12/26/20 12/26/20 03:43 03:47 03:53 Temperature Pulse Rate 64 77 78 Respiratory Rate Blood Pressure 124/86 Blood Pressure [Left] O2 Sat by Pulse 97 98 Oximetry 12/26/20 12/26/20 12/26/20 03:58 04:03 04:08 Temperature Pulse Rate 77 62 73 Respiratory Rate Blood Pressure Blood Pressure [Left] O2 Sat by Pulse 96 98 98 Oximetry 12/26/20 12/26/20 12/26/20 04:13 04:18 04:23 Temperature Pulse Rate 67 64 64 Respiratory Rate Blood Pressure Blood Pressure [Left] O2 Sat by Pulse 95 95 96 Oximetry 12/26/20 12/26/20 12/26/20 04:26 04:28 04:33 Temperature Pulse Rate 68 71 66 Respiratory Rate Blood Pressure Blood Pressure [Left] O2 Sat by Pulse 94 94 94 Oximetry 12/26/20 12/26/20 12/26/20 04:34 04:38 04:39 Temperature Pulse Rate 65 65 73 Respiratory Rate Blood Pressure Blood Pressure [Left] O2 Sat by Pulse 94 95 94 Oximetry 12/26/20 12/26/20 12/26/20 04:43 04:46 04:48 Temperature Pulse Rate 67 70 64 Respiratory Rate Blood Pressure Blood Pressure [Left] O2 Sat by Pulse 94 94 96 Oximetry 12/26/20 12/26/20 12/26/20 04:49 04:53 04:58 Temperature Pulse Rate 63 74 66 Respiratory Rate Blood Pressure 120/67 Blood Pressure [Left] O2 Sat by Pulse 95 96 Oximetry 12/26/20 12/26/20 12/26/20 05:03 05:08 05:12 Temperature Pulse Rate 65 63 70 Respiratory Rate Blood Pressure Blood Pressure [Left] O2 Sat by Pulse 96 96 94 Oximetry 12/26/20 12/26/20 12/26/20 05:13 05:17 05:18 Temperature Pulse Rate 64 65 70 Respiratory Rate Blood Pressure Blood Pressure [Left] O2 Sat by Pulse 95 94 95 Oximetry 12/26/20 12/26/20 12/26/20 05:23 05:28 05:33 Temperature Pulse Rate 72 68 69 Respiratory Rate Blood Pressure Blood Pressure [Left] O2 Sat by Pulse 97 97 98 Oximetry 12/26/20 12/26/20 12/26/20 05:38 05:43 05:50 Temperature Pulse Rate 71 66 63 Respiratory Rate Blood Pressure Blood Pressure [Left] O2 Sat by Pulse 96 97 97 Oximetry 12/26/20 12/26/20 12/26/20 05:55 06:00 06:05 Temperature Pulse Rate 66 66 64 Respiratory Rate Blood Pressure Blood Pressure [Left] O2 Sat by Pulse 98 97 96 Oximetry - Exam Breasts: deferred Cardiovascular: Regular rate Lungs: Normal air movement Abdomen: Present: normal appearance, soft. Absent: distention, tenderness Uterus: Present: normal FHR: auscultation normal, category 1 Uterine Contraction Monitor Mode: External Uterine Contraction Pattern: Irregular Uterine Contraction Intensity: Mild Extremities: normal Deep Tendon Reflex Grade: Normal +2 - Labs Labs: Abnormal Labs 12/24/20 12/24/20 12/24/20 20:00 20:00 21:31 WBC 12.2 H MCH 33 H MCHC 35 H RDW 12.5 L Sodium 136 L Potassium 5.9 H Carbon Dioxide 20 L Creatinine 0.5 L AST 60 H Urine WBC (Auto) Urine Creatinine 80.3 H 12/25/20 12/25/20 12/25/20 00:14 04:27 14:58 WBC MCH MCHC RDW Sodium 136 L 132 L Potassium 3.3 L D Carbon Dioxide 21 L Creatinine 0.4 L 0.4 L AST Urine WBC (Auto) 9.0 H Urine Creatinine Laboratory Results - last 24 hr 12/24/20 12/25/20 12/25/20 21:31 04:27 14:58 Sodium 132 L Potassium 4.1 D Chloride 99.4 Carbon Dioxide 22 Anion Gap 15 BUN 8 Creatinine 0.4 L Estimated GFR > 60 BUN/Creatinine Ratio 20 Glucose 82 Calcium 8.7 Urine Total Volume 1250 Urine Creatinine 80.3 H Height (in) 65.0 Weight (lb) 133.0 Creatinine Clearance 145 U Marijuana (THC) Screen Positive Drugs of Abuse Note Disclamer Coronavirus (PCR) 12/25/20 Unknown Sodium Potassium Chloride Carbon Dioxide Anion Gap BUN Creatinine Estimated GFR BUN/Creatinine Ratio Glucose Calcium Urine Total Volume Urine Creatinine Height (in) Weight (lb) Creatinine Clearance U Marijuana (THC) Screen Drugs of Abuse Note Coronavirus (PCR) Negative
[2020-12-26] MEDS: ONDANSETRON 4 MG/2 ML INJ IV PRN ×2 (06:30→14:34)
--- NOTE | 2020-12-26 07:53 | Event Note ---
Date: 12/26/20 ([facility] rec reviewed) Dr Rizo's consult recommends IOL @ 37w due to elevated BP, IUGR, and elevated doppler. SVE by RN 4,50,-3 vtx. Pt asks to have breakfast and AM care Will start pitocin per protocol @ 0900 Re-eval as indicated. Close observation of response to IOL Pt did NOT have GBS assessment in office Missed appt. Will treat per protocol Clindamycin
[2020-12-26] MEDS ORDERED: OXYTOCIN 10 UNIT/1 ML INJ IM PRN (08:00)
[2020-12-26] MEDS ORDERED: METHYLERGONOVINE MALEATE 0.2 MG/ML VIAL IM PRN (08:00)
[2020-12-26] MEDS ORDERED: ePHEDrine SULFATE 50 MG/1 ML INJ IV PRN ×2 (08:00→12:49)
[2020-12-26] MEDS ORDERED: LACTATED RINGERS 1,000 ML IV SCH (08:00)
[2020-12-26] MEDS ORDERED: CARBOPROST TROMETHAMINE 250 MCG/1 ML INJ IM PRN (08:00)
[2020-12-26] MEDS ORDERED: OXYTOCIN DRIP 30 UNITS/500 ML BAG IV SCH ×2 (08:00)
[2020-12-26] MEDS ORDERED: LIDOCAINE (2%) 20 MG/1 ML VIAL 20 ML MDV INFILTRATI SCH (08:00)
[2020-12-26] MEDS ORDERED: miSOPROStol 200 MCG TAB PR PRN (08:00)
[2020-12-26] MEDS ORDERED: MINERAL OIL 30 ML ORAL LIQD PO PRN (08:30)
[2020-12-26] MEDS ORDERED: TERBUTALINE 1 MG/1 ML INJ SUB-Q PRN (08:30)
--- NOTE | 2020-12-26 12:19 | Progress Note ---
Assessment and Plan Pt ready for epidural SVE 5,90,-1 AROM meconium stained fluid ISE/IUPC placed Will re-eval after epidural Subjective - Subjective Date of service: 12/26/20 (bolus for epidural) Principal diagnosis: IUP @ 37 0/7; elevated b/p, IUGR; abnl doppler Patient reports: movement normal, no new complaints, no loss of fluid, no vaginal bleeding, no contractions Objective - Vital Signs Vital Signs: Vital Signs - 12hr 12/26/20 12/26/20 12/26/20 00:17 00:21 00:22 Pulse Rate 76 72 67 Blood Pressure 116/74 O2 Sat by Pulse 93 92 Oximetry 12/26/20 12/26/20 12/26/20 00:27 00:31 00:32 Pulse Rate 75 68 70 Blood Pressure O2 Sat by Pulse 93 94 94 Oximetry 12/26/20 12/26/20 12/26/20 00:36 00:37 00:42 Pulse Rate 81 65 61 Blood Pressure O2 Sat by Pulse 93 94 98 Oximetry 12/26/20 12/26/20 12/26/20 00:47 00:48 00:52 Pulse Rate 63 66 67 Blood Pressure 131/69 O2 Sat by Pulse 98 96 Oximetry 12/26/20 12/26/20 12/26/20 00:57 01:02 01:07 Pulse Rate 63 61 65 Blood Pressure O2 Sat by Pulse 97 98 96 Oximetry 12/26/20 12/26/20 12/26/20 01:12 01:17 01:19 Pulse Rate 61 65 65 Blood Pressure O2 Sat by Pulse 96 95 94 Oximetry 12/26/20 12/26/20 12/26/20 01:22 01:27 01:38 Pulse Rate 62 66 68 Blood Pressure O2 Sat by Pulse 96 94 97 Oximetry 12/26/20 12/26/20 12/26/20 01:43 01:47 01:48 Pulse Rate 66 72 65 Blood Pressure 124/70 O2 Sat by Pulse 96 95 Oximetry 12/26/20 12/26/20 12/26/20 01:52 01:53 01:58 Pulse Rate 65 64 64 Blood Pressure O2 Sat by Pulse 94 94 95 Oximetry 12/26/20 12/26/20 12/26/20 02:03 02:05 02:08 Pulse Rate 68 67 67 Blood Pressure O2 Sat by Pulse 94 94 94 Oximetry 12/26/20 12/26/20 12/26/20 02:13 02:18 02:22 Pulse Rate 73 65 67 Blood Pressure O2 Sat by Pulse 94 94 94 Oximetry 12/26/20 12/26/20 12/26/20 02:23 02:28 02:33 Pulse Rate 69 75 65 Blood Pressure O2 Sat by Pulse 94 94 94 Oximetry 12/26/20 12/26/20 12/26/20 02:36 02:38 02:42 Pulse Rate 72 67 69 Blood Pressure O2 Sat by Pulse 94 94 94 Oximetry 12/26/20 12/26/20 12/26/20 02:43 02:48 02:53 Pulse Rate 64 79 68 Blood Pressure 130/68 O2 Sat by Pulse 94 94 94 Oximetry 12/26/20 12/26/20 12/26/20 02:55 02:58 03:03 Pulse Rate 69 65 71 Blood Pressure O2 Sat by Pulse 94 95 95 Oximetry 12/26/20 12/26/20 12/26/20 03:05 03:08 03:13 Pulse Rate 77 68 88 Blood Pressure O2 Sat by Pulse 94 95 97 Oximetry 12/26/20 12/26/20 12/26/20 03:18 03:23 03:28 Pulse Rate 78 85 77 Blood Pressure O2 Sat by Pulse 96 96 96 Oximetry 12/26/20 12/26/20 12/26/20 03:33 03:38 03:43 Pulse Rate 83 67 64 Blood Pressure O2 Sat by Pulse 96 95 97 Oximetry 12/26/20 12/26/20 12/26/20 03:47 03:53 03:58 Pulse Rate 77 78 77 Blood Pressure 124/86 O2 Sat by Pulse 98 96 Oximetry 12/26/20 12/26/20 12/26/20 04:03 04:08 04:13 Pulse Rate 62 73 67 Blood Pressure O2 Sat by Pulse 98 98 95 Oximetry 12/26/20 12/26/20 12/26/20 04:18 04:23 04:26 Pulse Rate 64 64 68 Blood Pressure O2 Sat by Pulse 95 96 94 Oximetry 12/26/20 12/26/20 12/26/20 04:28 04:33 04:34 Pulse Rate 71 66 65 Blood Pressure O2 Sat by Pulse 94 94 94 Oximetry 12/26/20 12/26/2012/26/21 04:38 04:39 04:43 Pulse Rate 65 73 67 Blood Pressure O2 Sat by Pulse 95 94 94 Oximetry 12/26/20 12/26/20 12/26/20 04:46 04:48 04:49 Pulse Rate 70 64 63 Blood Pressure 120/67 O2 Sat by Pulse 94 96 Oximetry 12/26/20 12/26/20 12/26/20 04:53 04:58 05:03 Pulse Rate 74 66 65 Blood Pressure O2 Sat by Pulse 95 96 96 Oximetry 12/26/20 12/26/20 12/26/20 05:08 05:12 05:13 Pulse Rate 63 70 64 Blood Pressure O2 Sat by Pulse 96 94 95 Oximetry 12/26/20 12/26/20 12/26/20 05:17 05:18 05:23 Pulse Rate 65 70 72 Blood Pressure O2 Sat by Pulse 94 95 97 Oximetry 12/26/20 12/26/20 12/26/20 05:28 05:33 05:38 Pulse Rate 68 69 71 Blood Pressure O2 Sat by Pulse 97 98 96 Oximetry 12/26/20 12/26/20 12/26/20 05:43 05:50 05:55 Pulse Rate 66 63 66 Blood Pressure O2 Sat by Pulse 97 97 98 Oximetry 12/26/20 12/26/20 12/26/20 06:00 06:05 06:10 Pulse Rate 66 64 63 Blood Pressure O2 Sat by Pulse 97 96 96 Oximetry 12/26/20 12/26/20 12/26/20 06:15 06:20 06:25 Pulse Rate 63 62 74 Blood Pressure O2 Sat by Pulse 98 98 96 Oximetry 12/26/20 12/26/20 12/26/20 06:30 06:35 06:40 Pulse Rate 71 71 72 Blood Pressure O2 Sat by Pulse 98 96 96 Oximetry 12/26/20 12/26/20 12/26/20 06:45 06:48 06:50 Pulse Rate 67 65 68 Blood Pressure 120/73 O2 Sat by Pulse 96 97 Oximetry 12/26/20 12/26/20 12/26/20 06:55 07:08 07:13 Pulse Rate 66 61 66 Blood Pressure O2 Sat by Pulse 96 98 96 Oximetry 12/26/20 12/26/20 12/26/20 07:18 07:23 07:28 Pulse Rate 67 68 62 Blood Pressure O2 Sat by Pulse 96 96 96 Oximetry 12/26/20 12/26/20 12/26/20 07:33 07:36 07:38 Pulse Rate 64 64 65 Blood Pressure O2 Sat by Pulse 96 94 94 Oximetry 12/26/20 12/26/20 12/26/20 07:43 07:45 07:48 Pulse Rate 68 65 78 Blood Pressure 143/80 145/73 O2 Sat by Pulse 96 99 Oximetry 12/26/20 12/26/20 12/26/20 07:53 07:58 08:03 Pulse Rate 70 73 74 Blood Pressure O2 Sat by Pulse 98 97 99 Oximetry 12/26/20 12/26/20 12/26/20 08:08 08:13 08:18 Pulse Rate 83 73 67 Blood Pressure O2 Sat by Pulse 98 97 96 Oximetry 12/26/20 12/26/20 12/26/20 08:23 08:28 08:33 Pulse Rate 72 68 67 Blood Pressure O2 Sat by Pulse 97 97 98 Oximetry 12/26/20 12/26/20 12/26/20 08:38 08:43 08:48 Pulse Rate 69 75 72 Blood Pressure 148/82 O2 Sat by Pulse 98 96 100 Oximetry 12/26/20 12/26/20 12/26/20 08:53 08:58 09:03 Pulse Rate 64 83 83 Blood Pressure O2 Sat by Pulse 97 99 98 Oximetry 12/26/20 12/26/20 12/26/20 09:08 09:13 09:18 Pulse Rate 82 78 69 Blood Pressure O2 Sat by Pulse 98 97 98 Oximetry 12/26/20 12/26/20 12/26/20 10:49 10:54 10:59 Pulse Rate 72 78 74 Blood Pressure 137/72 O2 Sat by Pulse 92 96 Oximetry 12/26/20 12/26/20 12/26/20 11:00 11:04 11:07 Pulse Rate 75 69 74 Blood Pressure O2 Sat by Pulse 96 95 94 Oximetry 12/26/20 12/26/20 12/26/20 11:09 11:14 11:16 Pulse Rate 75 77 68 Blood Pressure O2 Sat by Pulse 94 97 94 Oximetry 12/26/20 12/26/20 12/26/20 11:19 11:25 11:30 Pulse Rate 71 71 73 Blood Pressure O2 Sat by Pulse 96 96 94 Oximetry 12/26/20 12/26/20 12/26/20 11:34 11:40 11:59 Pulse Rate 83 71 67 Blood Pressure 133/88 O2 Sat by Pulse 99 95 Oximetry 12/26/20 12/26/20 12/26/20 12:00 12:04 12:09 Pulse Rate 72 69 80 Blood Pressure O2 Sat by Pulse 97 98 97 Oximetry - Exam Breasts: deferred Cardiovascular: Regular rate Lungs: Normal air movement Abdomen: Present: normal appearance, soft. Absent: distention, tenderness Uterus: Present: normal FHR: auscultation normal, category 1 Uterine Contraction Monitor Mode: Internal Cervical Dilatation: 5 (ISE/IUPC) Cervical Effacement Percentage: 90 (meconium) station: -1 Uterine Contraction Pattern: Irregular Uterine Tone Measurement Phase: Resting Uterine Contraction Intensity: Moderate Extremities: normal Deep Tendon Reflex Grade: Normal +2 - Labs Labs: Abnormal Labs 12/24/20 12/24/20 12/24/20 20:00 20:00 21:31 WBC 12.2 H MCH 33 H MCHC 35 H RDW 12.5 L Sodium 136 L Potassium 5.9 H Carbon Dioxide 20 L Creatinine 0.5 L AST 60 H Urine WBC (Auto) Urine Creatinine 80.3 H Ur Total Protein 24 Hr Urine Total Protein 12/25/20 12/25/20 12/25/20 00:14 04:27 14:58 WBC MCH MCHC RDW Sodium 136 L 132 L Potassium 3.3 L D Carbon Dioxide 21 L Creatinine 0.4 L 0.4 L AST Urine WBC (Auto) 9.0 H Urine Creatinine Ur Total Protein 24 Hr Urine Total Protein 12/25/20 21:31 WBC MCH MCHC RDW Sodium Potassium Carbon Dioxide Creatinine AST Urine WBC (Auto) Urine Creatinine Ur Total Protein 24 Hr 225.00 H Urine Total Protein 18 H Laboratory Results - last 24 hr 12/24/20 12/25/20 12/25/20 21:31 14:58 21:31 Sodium 132 L Potassium 4.1 D Chloride 99.4 Carbon Dioxide 22 Anion Gap 15 BUN 8 Creatinine 0.4 L Estimated GFR > 60 BUN/Creatinine Ratio 20 Glucose 82 Calcium 8.7 Urine Total Volume 1250 1250 Urine Creatinine 80.3 H Height (in) 65.0 Weight (lb) 133.0 Creatinine Clearance 145 Ur Total Protein 24 Hr 225.00 H Urine Total Protein 18 H Coronavirus (PCR) 12/25/20 Unknown Sodium Potassium Chloride Carbon Dioxide Anion Gap BUN Creatinine Estimated GFR BUN/Creatinine Ratio Glucose Calcium Urine Total Volume Urine Creatinine Height (in) Weight (lb) Creatinine Clearance Ur Total Protein 24 Hr Urine Total Protein Coronavirus (PCR) Negative
[2020-12-26] MEDS: buprenorphine 2 MG TAB SUBL SL SCH (12:25)
[2020-12-26] MEDS ORDERED: NALOXONE 2 MG/2 ML INJ IV PRN (12:49)
--- NOTE | 2020-12-26 12:49 | Anesthesia Consultation ---
Anesthesia Consult and Med Hx Date of service: 12/26/20 - Airway Anesthetic Teeth Evaluation: Good ROM Head & Neck: Adequate Mental/Hyoid Distance: Adequate Mallampati Class: Class II Intubation Access Assessment: Probably Good - Pulmonary Exam CTA: Yes - Cardiac Exam Cardiac Exam: RRR - Pre-Operative Health Status ASA Pre-Surgery Classification: ASA3 Proposed Anesthetic Plan: Epidural - Pulmonary Hx Smoking: Yes Hx Asthma: Yes - Cardiovascular System Hx Hypertension: Yes - Central Nervous System Hx Seizures: Yes (childhood) Hx Psychiatric Problems: No - Endocrine Hx Renal Disease: No Hx Hypothyroidism: No Hx Hyperthyroidism: No - Hematic Hx Anemia: No Hx Sickle Cell Disease: No - Other Systems Hx Alcohol Use: Yes
--- NOTE | 2020-12-26 13:08 | Progress Note ---
Labor Epidural - Labor Epidural Start Time: 12:57 Stop Time: 13:04 Performed by:: ERNST RATLIFF Procedure: Patient is requesting epidural for labor pain. H&P, and labs reviewed. Procedure explained, questions answered, consent obtained. Patient in sitting position with blood pressure cuff and pulse ox on and working. Timeout performed immediately before start of procedure. Sterile chlorahexadine 0.5% prep/drape. 3 mL 1% lidocaine skin wheal at L[3]-L[4]. 18-gauge Cerephextead epidural needle advanced to [id number] with saline at [7] cm. Epidural catheter advanced to [12] cm, negative aspiration for blood and csf, negative test dose 3 ml 1.5% lidocaine with epinephrine. Epidural dexmedetomidine [30] mcg administered. Sterile steri-strips and tegaderm applied, followed by tape reinforcement. Patient tolerated procedure well. Diamante INMAN
[2020-12-26] MEDS ORDERED: WITCH HAZEL/ GLYCERIN PAD TP PRN (13:53)
[2020-12-26] MEDS ORDERED: PROMETHAZINE 25 MG TAB PO PRN (13:53)
[2020-12-26] MEDS ORDERED: ACETAMINOPHEN 325 MG TAB PO PRN (13:53)
[2020-12-26] MEDS ORDERED: LANOLIN/ZINC/DIMETHICONE (LANSINOH) 7 GM TP PRN (13:53)
[2020-12-26] MEDS ORDERED: MAGNESIUM HYDROXIDE (MOM) ORAL LIQD UDC PO PRN (13:53)
[2020-12-26] MEDS ORDERED: fentaNYL-BUPIV 2 MCG/ML-0.125% 200 MCG/100 ML BAG EPIDURAL SCH (14:00)
--- NOTE | 2020-12-26 14:04 | Procedure Note ---
OB Delivery Note - Delivery Date of Delivery: 12/26/20 M48/M60 Tank Driver: JAMEY DANIEL (Sandra Monet CNM present) Estimated blood loss: <100cc - Vaginal Delivery presentation: vertex Delivery position: OA Intrapartum events: meconium, other(please specify) (IUGR, abnormal UV doppler flow studies) Delivery induction: oxytocin Delivery augmentation: rupture of membranes Delivery monitor: external FHT, external uterine, internal FHT, internal uterine Route of delivery: Delivery placenta: spontaneous Delivery cord: 3 umbilical vessels Episiotomy: none Delivery laceration: 1st degree (hemostatic, repair not needed) Anesthesia: epidural - A at 1 minute: 8 at 5 minutes: 8 Infant Gender: Male (6lbs 3oz)
[2020-12-26] MEDS: IBUPROFEN 800 MG TAB PO SCH (17:56)
[2020-12-27] MEDS: buprenorphine 2 MG TAB SUBL SL SCH ×3 (01:15→23:24)
[2020-12-27] MEDS: IBUPROFEN 800 MG TAB PO SCH ×3 (01:17→18:30)
[2020-12-27 04:04] LABS: Hematocrit 37.6 % (30.3-42.9)
[2020-12-27] MEDS ORDERED: TETANUS,DIPH,PERTUSS(ACELL) VACCINE 0.5 ML SYRINGE IM ONE (06:00)
--- NOTE | 2020-12-27 08:39 | Progress Note ---
Assessment and Plan Pt ambulating in room, eating, and without complaints this am; denies ORTIZ, RUQ pain, and vision changes. Male infant swaddled in crib at bedside and pt reports desires for circumcision. Fundus firm with scant lochia; H/H post-delivery 13/37.6 stable; VSS with the exception of 3 BP's with elevated systolic readings in 150's. Dr Alonzo made aware. - Patient Problems (1) Elevated blood pressure complicating in third trimester, antepartum Onset Date: ~12/24/20 Current Visit: Yes Status: Acute Plan to address problem: Labetalol 200mg BID ordered Monitor for SSx and changes in status (2) Rh negative status during Current Visit: Yes Status: Acute Plan to address problem: Administer Rhogam (3) Single live Current Visit: Yes Status: Acute Plan to address problem: continue pathway Subjective - Subjective Date of service: 12/27/20 Principal diagnosis: PP day #1, , GHTN Patient reports: appetite normal, voiding normally, pain well controlled, ambulating normally : doing well Objective - Vital Signs Latest vital signs: Vital Signs Temp Pulse Resp BP BP Pulse Ox 12/27/20 07:43 98.7 F 70 20 154/87 96 12/27/20 02:17 18 12/27/20 01:17 20 12/27/20 00:25 98.2 F 70 18 132/75 95 12/26/20 22:43 18 12/26/20 21:43 20 12/26/20 20:19 98.6 F 84 18 123/76 96 12/26/20 16:00 98 F 57 L 20 113/65 95 12/26/20 15:15 78 89 12/26/20 15:10 74 84 12/26/20 15:09 72 121/75 86 12/26/20 15:05 79 97 12/26/20 15:02 85 93 12/26/20 15:00 72 99 12/26/20 14:55 67 95 12/26/20 14:54 66 119/70 12/26/20 14:52 75 94 12/26/20 14:50 66 99 12/26/20 14:45 79 96 12/26/20 14:42 81 94 12/26/20 14:40 81 91 12/26/20 14:39 71 123/65 12/26/20 14:37 57 L 78 L 12/26/20 14:35 76 98 12/26/20 14:31 76 98 12/26/20 14:30 82 94 12/26/20 14:25 69 97 12/26/20 14:24 64 126/64 88 12/26/20 14:20 72 96 12/26/20 14:15 69 100 12/26/20 14:10 64 100 12/26/20 14:09 71 155/67 94 12/26/20 14:05 82 98 12/26/20 14:04 62 133/76 12/26/20 14:00 97.8 F 78 95 12/26/20 13:59 71 91 12/26/20 13:56 69 100 12/26/20 13:54 67 128/67 12/26/20 13:53 58 L 125/64 12/26/20 13:51 71 129/66 86 12/26/20 13:49 75 121/65 12/26/20 13:47 73 128/59 12/26/20 13:46 78 130/67 12/26/20 13:45 70 98 12/26/20 13:43 57 L 117/58 12/26/20 13:42 71 131/75 94 12/26/20 13:41 75 99 12/26/20 13:40 70 130/69 12/26/20 13:38 68 151/83 12/26/20 13:35 59 L 94 12/26/20 13:34 74 97 12/26/20 13:29 63 140/72 93 12/26/20 13:28 67 146/69 86 12/26/20 13:25 67 182/72 12/26/20 13:24 65 97 12/26/20 13:23 67 145/69 12/26/20 13:21 66 148/67 12/26/20 13:20 81 175/74 12/26/20 13:19 75 97 12/26/20 13:17 72 159/72 12/26/20 13:16 73 175/83 12/26/20 13:14 73 80 L 12/26/20 13:13 76 143/72 12/26/20 13:11 80 151/74 94 12/26/20 13:10 66 98 12/26/20 13:09 68 145/70 12/26/20 13:05 67 145/70 92 12/26/20 13:03 75 142/71 12/26/20 13:01 72 153/73 12/26/20 12:59 89 158/78 97 12/26/20 12:54 62 95 12/26/20 12:50 83 96 12/26/20 12:44 70 97 12/26/20 12:39 74 95 12/26/20 12:37 77 93 12/26/20 12:34 69 98 12/26/20 12:30 82 98 12/26/20 12:24 84 98 12/26/20 12:19 70 97 12/26/20 12:15 76 96 12/26/20 12:09 80 97 12/26/20 12:04 69 98 12/26/20 12:00 72 97 12/26/20 11:59 67 133/88 12/26/20 11:40 71 95 12/26/20 11:34 83 99 12/26/20 11:30 73 94 12/26/20 11:25 71 96 12/26/20 11:19 71 96 12/26/20 11:16 68 94 12/26/20 11:14 77 97 12/26/20 11:09 75 94 12/26/20 11:07 74 94 12/26/20 11:04 69 95 12/26/20 11:00 75 96 12/26/20 10:59 74 137/72 12/26/20 10:54 78 96 12/26/20 10:49 72 92 12/26/20 10:00 98.5 F 85 12/26/20 09:18 69 98 12/26/20 09:13 78 97 12/26/20 09:08 82 98 12/26/20 09:03 83 98 12/26/20 08:58 83 99 12/26/20 08:53 64 97 12/26/20 08:48 72 148/82 100 12/26/20 08:43 75 96 Intake and Output 12/26/20 12/27/20 12/27/20 23:59 07:59 15:59 Intake Total 240 480 Output Total 370 Balance -130 480 Intake: Oral 240 Intake, Free Water 240 240 Output: Urine 370 Void 370 Other: Total, Intake Amount 240 Total, Output Amount 120 # Voids Void 1 1 - Exam Breasts: Present: normal Cardiovascular: Present: Regular rate Lungs: Present: Normal air movement Abdomen: Present: normal appearance, soft Vulva: both: normal Uterus: Present: normal, firm, fundal height below umbilicus Extremities: Present: normal
[2020-12-27] MEDS ORDERED: MEASLES, MUMPS & RUBELLA 12,500 UNIT/0.5 ML VACCINE SUB-Q ONE (13:53)
--- NOTE | 2020-12-27 15:50 | Post Anesthesia Evaluation ---
- Post Anesthesia Evaluation Patient Participated: Yes Airway Patent: Yes Stable Respiratory Function: Yes Nausea/Vomiting: No Temp > 96.8F: Yes Pain Manageable: Yes Adequeate Hydration: Yes Anesthesia Complications: No Block Receding Appropriately: Yes
[2020-12-28] MEDS: IBUPROFEN 800 MG TAB PO SCH (02:30)
--- NOTE | 2020-12-28 07:54 | Discharge Summary ---
Providers - Providers Date of Admission: 12/26/20 14:14 Date of discharge: 12/28/20 (Pt desires to go home. ) Attending physician: GILBERTO NELSON 12/26/20 12:15 Consult to Case Management [CONS] Routine Services Needed at Discharge: Production Sampler Notified:: yes Phone number called:: [phone] Was contact made?: Yes If yes, spoke with:: Otiila Time called:: 12:03 Comment:: mom/baby + THC Primary care physician: GILBERTO NELSON Hospitalization Reason for admission: observation, induction of labor Delivery: Episiotomy: none Laceration: 1st degree Other procedures: none complications: none Discharge diagnosis: IUP at term delivered [place] baby: male Pertinent studies: Pt denies ORTIZ, blurred vision, spots before her eyes, shortness of breath, chest pain, and upper abdominal pain. We discussed how to take a proper blood pressure and when to call the supervisor publications production provider with questions/concerns. Hospital course: S: Pt doing well. Ambulating, voiding, and passing flatus okay. BC: Contraceptive Gel. O: VSS. Blood pressures have been 130's/70's. H/H 13.0/37.6. Fundus firm, minimal bleeding noted. A: 35 y.o. s/p after IOL d/t elevated blood pressures, now in good condition to be discharged home. P: Discharge home with instructions. Pt to come to office in 1 week for blood pressure check and son's circumcision. Condition at discharge: Good Disposition: DC-01 TO HOME OR SELFCARE Plan - Discharge Medications Prescriptions: Blood Pressure Test Kit-Large [Blood Pressure Cuff Monitor] 1 each MC ONCE #1 kit Blood Pressure Test Kit-Medium [Blood Pressure Monitor] 1 each MC ONCE #1 kit Lidocain2.5%/Prilocai2.5% [Emla] 1 applic TP ONCE #1 tube labetaloL [Labetalol 200mg TAB] 200 mg PO BID #60 tablet - Provider Discharge Summary Activity: routine, no sex for 6 weeks, no heavy lifting 4 weeks, no strenuous exercise Diet: routine Instructions: routine Additional instructions: [] Smoking cessation referral if applicable(refer to patient education folder for contact #) [] Refer to [facility] Booklet Call your doctor immediately for: * Fever > 100.5 * Heavy vaginal bleeding ( >1 pad per hour) * Severe persistent headache * Shortness of breath * Reddened, hot, painful area to leg or breast * Drainage or odor from incision. * Keep incision clean and dry at all times and follow doctor's instructions regarding bathing/showering Congratulations on your baby boy! Please schedule your son's circumcision and your blood pressure check in the office in 1 week. You have been prescribed EMLA cream for your son's circumcision. Please do not use this cream at home, but bring it with you to your son's circumcision appointment. If you have any questions or concerns after discharge, please do not hesitate to call the office at [phone]. Taking your blood pressure at home Please take your blood pressure at least once daily Take your blood pressure medication as written by your provider Taking your blood pressure with a wrist monitor: 1. Put the blood pressure cuff on your wrist. Make sure it is not on the bone of your wrist. 2. Sit with your legs uncrossed and feet flat on the ground. 3. Wait 5-10 minutes before taking your blood pressure. 4. If you wrist monitor requires you to put your arm across your chest: After 5-10 minutes, put your arm across your chest like you are about to say the pledge of allegiance. Taking your blood pressure with a cuff monitor: 1. Put the blood pressure cuff on your arm. 2. Sit with your legs uncrossed and feet flat on the ground. Make sure your arm is relaxed on a table or your kitchen table and bent at a 90 degree angle. 3. After 5-10 minutes push the button to take your blood pressure. While you are at home, if you experience a headache, blurred vision, spots before your eyes, chest pain, shortness of breath, and pain in your upper belly, and/or your blood pressure is 140/90 or greater please call the on-call provider immediately. - Follow up plan Follow up: GILBERTO NELSON MD [Primary Care Provider] - 7 Days
[2020-12-28 15:05] VITALS: BP 130/83
== END 2020-12-28 15:09 | disposition home or self-care (01) | DRG 775 ==
LOC: TRG 18:47 → LD 18:48 → TRG 19:19 → LD 19:19 → OBSVTOIN 12-26 14:14 → OB 12-26 16:23
PROVIDERS: ADMIT Obstetrics & Gynecology; ATTEND Obstetrics & Gynecology
PROC: 10E0XZZ Delivery of Products of Conception, External Approach (ICD-10-PCS; principal; 2020-12-26)
PROC: 3E0234Z Introduction of Serum, Toxoid and Vaccine into Muscle, Percutaneous Approach (ICD-10-PCS; 2020-12-26)
PROC: 3E033VJ Introduction of Other Hormone into Peripheral Vein, Percutaneous Approach (ICD-10-PCS; 2020-12-26)
PROC: 3E0R3BZ Introduction of Anesthetic Agent into Spinal Canal, Percutaneous Approach (ICD-10-PCS; 2020-12-26)
PROC: 00HU33Z Insertion of Infusion Device into Spinal Canal, Percutaneous Approach (ICD-10-PCS; 2020-12-26)
PROC: 10907ZC Drainage of Amniotic Fluid, Therapeutic from Products of Conception, Via Natural or Artificial Opening (ICD-10-PCS; 2020-12-26)
PROC: 10H07YZ Insertion of Other Device into Products of Conception, Via Natural or Artificial Opening (ICD-10-PCS; 2020-12-26)
DX: O13.4 Gestational [pregnancy-induced] hypertension without significant proteinuria, complicating childbirth (principal); O36.5930 Maternal care for other known or suspected poor fetal growth, third trimester, not applicable or unspecified; O70.0 First degree perineal laceration during delivery; Z37.0 Single live birth; O75.89 Other specified complications of labor and delivery; E87.6 Hypokalemia; O35.8XX0 Maternal care for other (suspected) fetal abnormality and damage, not applicable or unspecified; O77.0 Labor and delivery complicated by meconium in amniotic fluid; Z3A.37 37 weeks gestation of pregnancy; Z23 Encounter for immunization
CPT/HCPCS: 36415; 80048; 80076; 80307; 81001; 82565; 82570; 82575; 83615; 84156; 84450; 84460; 84550; 85014; 85018; 85027; 85461; 86850; 86870; 86900; 86901; 87086; 88307; 99211; G0378; G0463; J2405; J2590; J2790; J7120; U0003